=== PATIENT | female | born 1980 | race Caucasian/White ===

== ENCOUNTER 2016-11-17 15:43 | Emergency (ER) | payer BC ==
[2016-11-17 16:00] VITALS: BP 126/76
--- NOTE | 2016-11-17 17:31 | UC ---
Skin Complaint HPI - HPI Summary HPI Summary: Patient presents to the with CC of bullseye rash over the left area of the rib cage under the arm 1.5 weeks s/p tick bite. She denies any other symptoms at this time. She is otherwise healthy. Denies allergies to medications. - History of Current Complaint Chief Complaint: [facility] Time Seen by Provider: 11/17/16 16:27 Stated Complaint: TICK BITE W/BULLSEYE Hx Obtained From: Patient Hx Last Menstrual Period: 11/02/16 ?: No Onset/Duration: Sudden Onset Skin Exposure Onset/Duration: Minutes Ago Timing: Constant Onset Severity: Mild Current Severity: Mild Pain Intensity: 1 Pain Scale Used: 0-10 Numeric Location: Discrete - right sided Character: Pain Aggravating: Nothing Alleviating: Nothing Associated Signs & Symptoms: Positive: Negative Related History: Foreign Body - Allergy/Home Medications Allergies/Adverse Reactions: Allergies Allergy/AdvReac Type Severity Reaction Status Date / Time Sun Allergy Hives Uncoded 11/17/16 16:00 Home Medications: Home Medications Sertraline* [Zoloft*] 1 tab PO DAILY 11/17/16 [History Confirmed 11/17/16] Review of Systems Constitutional: Negative Skin: Other - EM rash Eyes: Negative Cardiovascular: Negative Gastrointestinal: Negative Motor: Negative Neurovascular: Negative Musculoskeletal: Negative Neurological: Negative Psychological: Negative All Other Systems Reviewed And Are Negative: Yes PMH/Surg Hx/FS Hx/Imm Hx Previously Healthy: Yes - Surgical History Surgical History: Yes Surgery Procedure, Year, and Place: Left Knee Reconstructive Surgery- 2000. Tonsilectomy - Family History Known Family History: Positive: Unknown - Social History Occupation: Employed Full-time Lives: With Family Alcohol Use: None Substance Use Type: None Smoking Status (MU): Never Smoked Tobacco - Immunization History Most Recent Tetanus Shot: 2015 Physical Exam Triage Information Reviewed: Yes Appearance: Well-Appearing, No Pain Distress, Well-Nourished Vital Signs: Initial Vital Signs Temp 98.0 F 11/17/16 15:56 Pulse 86 11/17/16 15:56 Resp 16 11/17/16 15:56 BP 126/76 11/17/16 15:56 Pulse Ox 100 11/17/16 15:56 Vital Signs Reviewed: Yes Eye Exam: Normal Eyes: Positive: Conjunctiva Clear Dental Exam: Normal Neck exam: Normal Neck: Positive: Supple, Nontender, No Lymphadenopathy Respiratory Exam: Normal Respiratory: Positive: Chest non-tender Cardiovascular Exam: Normal Cardiovascular: Positive: RRR Musculoskeletal Exam: Normal Musculoskeletal: Positive: Strength Intact Neurological: Positive: Alert Psychological Exam: Normal Psychological: Positive: Normal Response To Family Skin: Positive: Other - 10X10 EM bullseye rash over the right side of the chest under the arm Course/Dx - Course Course Of Treatment: 10X10 EM bullseye rash over the right side of the chest under the arm 1.5 weeks s/p tick bite to same area. Denies other symptoms. Patient is rx doxycycline x 3 weeks based on ISDA guidelines. She is to follow up with her PCP in 4 weeks for recheck and possible further evaluation or workup. - Differential Diagnoses - Skin Complaint Differential Diagnoses: Drug Rash, Poison Zaria, Tick Born Illness, Urticaria - Diagnoses Provider Diagnoses: Tick Bite with Erthema Migrans Rash Discharge - Discharge Plan Condition: Stable Disposition: HOME Prescriptions: DOXYcycline CAP(*) [DOXYcycline 100MG CAP(*)] 100 mg PO BID #[id number] cap Patient Education Materials: Lyme Disease (ED), Tick Bite (ED) Referrals: Jinny Mcgarry MD [Primary Care Provider] - Additional Instructions: Follow up with your doctor in 1 month.
== END 2016-11-17 17:32 | disposition home or self-care (01) ==
LOC: UCEAST 15:43
DX: S20.369A Insect bite (nonvenomous) of unspecified front wall of thorax, initial encounter (principal); W57.XXXA Bitten or stung by nonvenomous insect and other nonvenomous arthropods, initial encounter; A26.0 Cutaneous erysipeloid; Y93.9 Activity, unspecified; Y92.9 Unspecified place or not applicable; Y99.9 Unspecified external cause status
CPT/HCPCS: 99212; G0463